=== PATIENT | female | born 1995 | race Caucasian/White ===

== ENCOUNTER 2021-07-11 22:13 | Emergency (ER) | payer OTHER | END 2021-07-11 23:20 | disposition home or self-care (01) | LOC: FER 22:13 | DX: S99.912A Unspecified injury of left ankle, initial encounter (principal); Z88.0 Allergy status to penicillin; X50.1XXA Overexertion from prolonged static or awkward postures, initial encounter; Y92.009 Unspecified place in unspecified non-institutional (private) residence as the place of occurrence of the external cause | CPT/HCPCS: 73610; 99283 ==